=== PATIENT | male | born 1960 | race Hispanic/Latino ===

== ENCOUNTER → 2018-09-03 | Outpatient (CLI) | payer OTHER ==
[~2018-09-03] MED LIST: LIDOCAINE/PRILOCAINE CREAM 5GM TUBE TP ONE
[2018-09-03 09:21] VITALS: BP 140/85
== END | disposition home or self-care (01) ==
LOC: WHH 08:00
PROVIDERS: ATTEND Podiatrist Foot & Ankle Surgery
DX: I83.023 Varicose veins of left lower extremity with ulcer of ankle (principal); E11.622 Type 2 diabetes mellitus with other skin ulcer; L97.321 Non-pressure chronic ulcer of left ankle limited to breakdown of skin
CPT/HCPCS: 29580; 99215; A4450; A4649; A6456; J3490

== ENCOUNTER → 2018-09-10 | Outpatient (CLI) | payer OTHER ==
[2018-09-10 13:04] VITALS: BP 134/83
== END | disposition home or self-care (01) ==
LOC: WHH 08:25
PROVIDERS: ATTEND Podiatrist Foot & Ankle Surgery
DX: I83.023 Varicose veins of left lower extremity with ulcer of ankle (principal); E11.622 Type 2 diabetes mellitus with other skin ulcer; L97.321 Non-pressure chronic ulcer of left ankle limited to breakdown of skin
CPT/HCPCS: 99215; A4649; A6456

== ENCOUNTER → 2018-09-17 | Outpatient (CLI) | payer OTHER ==
[2018-09-17 13:20] VITALS: BP 134/80
== END | disposition home or self-care (01) ==
LOC: WHH 08:45
PROVIDERS: ATTEND Podiatrist Foot & Ankle Surgery
DX: I83.023 Varicose veins of left lower extremity with ulcer of ankle (principal); E11.622 Type 2 diabetes mellitus with other skin ulcer; L97.321 Non-pressure chronic ulcer of left ankle limited to breakdown of skin; I89.0 Lymphedema, not elsewhere classified
CPT/HCPCS: 29580; 99214; A4450; A6022; A6450; A6456; J3490; A6452

== ENCOUNTER → 2018-09-24 | Outpatient (CLI) | payer OTHER ==
[2018-09-24 13:18] VITALS: BP 137/72
== END | disposition home or self-care (01) ==
LOC: WHH 08:00
PROVIDERS: ATTEND Podiatrist Foot & Ankle Surgery
DX: I83.023 Varicose veins of left lower extremity with ulcer of ankle (principal); E11.622 Type 2 diabetes mellitus with other skin ulcer; L97.321 Non-pressure chronic ulcer of left ankle limited to breakdown of skin; I89.0 Lymphedema, not elsewhere classified
CPT/HCPCS: 29580; 99214; A6022; A6456; J3490

== ENCOUNTER → 2018-10-01 | Outpatient (CLI) | payer OTHER ==
[2018-10-01 13:22] VITALS: BP 136/81
== END | disposition home or self-care (01) ==
LOC: WHH 09:00
PROVIDERS: ATTEND Podiatrist Foot & Ankle Surgery
DX: I83.023 Varicose veins of left lower extremity with ulcer of ankle (principal); E11.622 Type 2 diabetes mellitus with other skin ulcer; L97.321 Non-pressure chronic ulcer of left ankle limited to breakdown of skin; I83.025 Varicose veins of left lower extremity with ulcer other part of foot; L97.521 Non-pressure chronic ulcer of other part of left foot limited to breakdown of skin; I89.0 Lymphedema, not elsewhere classified
CPT/HCPCS: 29580; 99214; A4649; A6456; J3490

== ENCOUNTER → 2018-10-08 | Outpatient (CLI) | payer OTHER ==
[2018-10-08 13:07] VITALS: BP 136/87
== END | disposition home or self-care (01) ==
LOC: WHH 08:45
PROVIDERS: ATTEND Podiatrist Foot & Ankle Surgery
DX: E11.622 Type 2 diabetes mellitus with other skin ulcer (principal); I83.023 Varicose veins of left lower extremity with ulcer of ankle; L97.321 Non-pressure chronic ulcer of left ankle limited to breakdown of skin; I89.0 Lymphedema, not elsewhere classified; I87.8 Other specified disorders of veins
CPT/HCPCS: 99214; A4649; A6452

== ENCOUNTER → 2018-10-15 | Outpatient (CLI) | payer OTHER ==
[2018-10-15 09:15] VITALS: BP 138/82
== END | disposition home or self-care (01) ==
LOC: WHH 09:00
PROVIDERS: ATTEND Podiatrist Foot & Ankle Surgery
DX: E11.622 Type 2 diabetes mellitus with other skin ulcer (principal); I83.023 Varicose veins of left lower extremity with ulcer of ankle; L97.321 Non-pressure chronic ulcer of left ankle limited to breakdown of skin; I89.0 Lymphedema, not elsewhere classified
CPT/HCPCS: 99211; A4649

== ENCOUNTER → 2018-10-22 | Outpatient (CLI) | payer OTHER ==
[2018-10-22 14:41] VITALS: BP 132/80
== END | disposition home or self-care (01) ==
LOC: WHH 09:45
PROVIDERS: ATTEND Podiatrist Foot & Ankle Surgery
DX: E11.622 Type 2 diabetes mellitus with other skin ulcer (principal); I83.023 Varicose veins of left lower extremity with ulcer of ankle; L97.321 Non-pressure chronic ulcer of left ankle limited to breakdown of skin; I87.8 Other specified disorders of veins; I89.0 Lymphedema, not elsewhere classified
CPT/HCPCS: 29580; 99214; A4649; A6456

== ENCOUNTER → 2018-10-29 | Outpatient (CLI) | payer OTHER ==
[2018-10-29 11:15] VITALS: BP 141/78
== END | disposition home or self-care (01) ==
LOC: WHH 09:00
PROVIDERS: ATTEND Podiatrist Foot & Ankle Surgery
DX: I83.023 Varicose veins of left lower extremity with ulcer of ankle (principal); E11.622 Type 2 diabetes mellitus with other skin ulcer; L97.321 Non-pressure chronic ulcer of left ankle limited to breakdown of skin; I89.0 Lymphedema, not elsewhere classified
CPT/HCPCS: 29580; A6207; A6456; G0463; J3490

== ENCOUNTER → 2018-11-05 | Outpatient (CLI) | payer OTHER ==
[2018-11-05 12:47] VITALS: BP 124/80
== END | disposition home or self-care (01) ==
LOC: WHH 08:28
PROVIDERS: ATTEND Podiatrist Foot & Ankle Surgery
DX: I83.023 Varicose veins of left lower extremity with ulcer of ankle (principal); E11.622 Type 2 diabetes mellitus with other skin ulcer; L97.321 Non-pressure chronic ulcer of left ankle limited to breakdown of skin; I89.0 Lymphedema, not elsewhere classified
CPT/HCPCS: 15271; 87070; 87077; 87186; A6196; A6207; Q4133

== ENCOUNTER → 2018-11-19 | Outpatient (CLI) | payer OTHER ==
[2018-11-19 15:33] VITALS: BP 146/84
== END | disposition home or self-care (01) ==
LOC: WHH 08:00
PROVIDERS: ATTEND Podiatrist Foot & Ankle Surgery
DX: I83.023 Varicose veins of left lower extremity with ulcer of ankle (principal); L97.321 Non-pressure chronic ulcer of left ankle limited to breakdown of skin; E11.622 Type 2 diabetes mellitus with other skin ulcer; I87.8 Other specified disorders of veins; I89.0 Lymphedema, not elsewhere classified
CPT/HCPCS: 29580; A4649; A6456; G0463

== ENCOUNTER → 2018-11-26 | Outpatient (CLI) | payer OTHER ==
[2018-11-26 09:57] VITALS: BP 127/72
== END | disposition home or self-care (01) ==
LOC: WHH 08:00
PROVIDERS: ATTEND Podiatrist Foot & Ankle Surgery
DX: I83.023 Varicose veins of left lower extremity with ulcer of ankle (principal); E11.622 Type 2 diabetes mellitus with other skin ulcer; L97.321 Non-pressure chronic ulcer of left ankle limited to breakdown of skin; I89.0 Lymphedema, not elsewhere classified
CPT/HCPCS: 15271; A6196; A6456; J3490; Q4133

== ENCOUNTER → 2018-12-10 | Outpatient (CLI) | payer OTHER ==
[2018-12-10 11:49] VITALS: BP 169/83
== END | disposition home or self-care (01) ==
LOC: WHH 08:30
PROVIDERS: ATTEND Podiatrist Foot & Ankle Surgery
DX: E11.622 Type 2 diabetes mellitus with other skin ulcer (principal); L97.321 Non-pressure chronic ulcer of left ankle limited to breakdown of skin; I83.023 Varicose veins of left lower extremity with ulcer of ankle; I89.0 Lymphedema, not elsewhere classified; I87.8 Other specified disorders of veins
CPT/HCPCS: 15271; A6207; A6456; Q4133

== ENCOUNTER → 2018-12-17 | Outpatient (CLI) | payer OTHER ==
[2018-12-17 13:13] VITALS: BP 158/91
== END | disposition home or self-care (01) ==
LOC: WHH 08:45
PROVIDERS: ATTEND Podiatrist Foot & Ankle Surgery
DX: E11.622 Type 2 diabetes mellitus with other skin ulcer (principal); L97.321 Non-pressure chronic ulcer of left ankle limited to breakdown of skin; I83.023 Varicose veins of left lower extremity with ulcer of ankle; I89.0 Lymphedema, not elsewhere classified; I87.8 Other specified disorders of veins
CPT/HCPCS: 15271; A4649; A6207; A6456; Q4133

== ENCOUNTER → 2018-12-24 | Outpatient (CLI) | payer OTHER ==
[2018-12-24 13:54] VITALS: BP 145/75
== END | disposition home or self-care (01) ==
LOC: WHH 08:45
PROVIDERS: ATTEND Podiatrist Foot & Ankle Surgery
DX: E11.622 Type 2 diabetes mellitus with other skin ulcer (principal); I83.023 Varicose veins of left lower extremity with ulcer of ankle; L97.321 Non-pressure chronic ulcer of left ankle limited to breakdown of skin; I89.0 Lymphedema, not elsewhere classified; I87.8 Other specified disorders of veins
CPT/HCPCS: 15271; A4649; A6197; A6456; Q4133

== ENCOUNTER → 2018-12-31 | Outpatient (CLI) | payer OTHER ==
[2018-12-31 10:16] VITALS: BP 145/80
== END | disposition home or self-care (01) ==
LOC: WHH 09:00
PROVIDERS: ATTEND Podiatrist Foot & Ankle Surgery
DX: E11.622 Type 2 diabetes mellitus with other skin ulcer (principal); I83.023 Varicose veins of left lower extremity with ulcer of ankle; L97.321 Non-pressure chronic ulcer of left ankle limited to breakdown of skin; I87.8 Other specified disorders of veins; I89.0 Lymphedema, not elsewhere classified
CPT/HCPCS: 15271; A6207; A6456; Q4133

== ENCOUNTER → 2019-01-07 | Outpatient (CLI) | payer OTHER ==
[2019-01-07 09:37] VITALS: BP 135/75
== END | disposition home or self-care (01) ==
LOC: WHH 08:00
PROVIDERS: ATTEND Podiatrist Foot & Ankle Surgery
DX: E11.622 Type 2 diabetes mellitus with other skin ulcer (principal); I83.023 Varicose veins of left lower extremity with ulcer of ankle; L97.321 Non-pressure chronic ulcer of left ankle limited to breakdown of skin; I87.8 Other specified disorders of veins; I89.0 Lymphedema, not elsewhere classified
CPT/HCPCS: 15271; A6207; A6456; J3490; Q4133

== ENCOUNTER → 2019-01-14 | Outpatient (CLI) | payer OTHER ==
[2019-01-14 13:56] VITALS: BP 123/69
--- NOTE | 2019-01-14 14:01 | NUR ---
Patient reports that he did not take Augmentin prescribed on 01/07/19. Patient states he completely forgot about prescription and never filled it. Dr. Kwok was informed and did not want pt to take abx at this time. Addendum: 01/14/19 at 1404 by DIONE CARRASCO RN/BONITA Amended: Links added.
== END | disposition home or self-care (01) ==
LOC: WHH 08:30
PROVIDERS: ATTEND Podiatrist Foot & Ankle Surgery
DX: E11.622 Type 2 diabetes mellitus with other skin ulcer (principal); I83.013 Varicose veins of right lower extremity with ulcer of ankle; L97.321 Non-pressure chronic ulcer of left ankle limited to breakdown of skin; I89.0 Lymphedema, not elsewhere classified; I87.8 Other specified disorders of veins
CPT/HCPCS: 15271; A6207; A6456; Q4133; 29580

== ENCOUNTER → 2019-01-21 | Outpatient (CLI) | payer OTHER ==
[2019-01-21 14:26] VITALS: BP 142/62
== END | disposition home or self-care (01) ==
LOC: WHH 09:15
PROVIDERS: ATTEND Podiatrist Foot & Ankle Surgery
DX: E11.622 Type 2 diabetes mellitus with other skin ulcer (principal); I83.023 Varicose veins of left lower extremity with ulcer of ankle; L97.321 Non-pressure chronic ulcer of left ankle limited to breakdown of skin; I87.8 Other specified disorders of veins; I89.0 Lymphedema, not elsewhere classified
CPT/HCPCS: 15271; A6207 ×2; A6456; Q4132

== ENCOUNTER → 2019-01-28 | Outpatient (CLI) | payer OTHER ==
[2019-01-28 15:32] VITALS: BP 127/71
== END | disposition home or self-care (01) ==
LOC: WHH 08:30
PROVIDERS: ATTEND Podiatrist Foot & Ankle Surgery
DX: E11.622 Type 2 diabetes mellitus with other skin ulcer (principal); I83.023 Varicose veins of left lower extremity with ulcer of ankle; L97.321 Non-pressure chronic ulcer of left ankle limited to breakdown of skin; I89.0 Lymphedema, not elsewhere classified; I87.8 Other specified disorders of veins
CPT/HCPCS: 15271; A6207; A6456; Q4133; 29580

== ENCOUNTER → 2019-02-04 | Outpatient (CLI) | payer OTHER ==
[2019-02-04 14:02] VITALS: BP 136/75
== END | disposition home or self-care (01) ==
LOC: WHH 08:30
PROVIDERS: ATTEND Podiatrist Foot & Ankle Surgery
DX: E11.622 Type 2 diabetes mellitus with other skin ulcer (principal); I83.023 Varicose veins of left lower extremity with ulcer of ankle; L97.321 Non-pressure chronic ulcer of left ankle limited to breakdown of skin; I89.0 Lymphedema, not elsewhere classified; I87.8 Other specified disorders of veins
CPT/HCPCS: 29580; A6207; A6456; G0463

== ENCOUNTER → 2019-02-11 | Outpatient (CLI) | payer OTHER ==
[~2019-02-11] MED LIST changes: +LIDOCAINE HCL 2% JELLY 5 ML ONE; -LIDOCAINE/PRILOCAINE CREAM 5GM TUBE TP ONE
[2019-02-11 13:36] VITALS: BP 124/86
== END | disposition home or self-care (01) ==
LOC: WHH 08:30
PROVIDERS: ATTEND Podiatrist Foot & Ankle Surgery
DX: E11.622 Type 2 diabetes mellitus with other skin ulcer (principal); I83.023 Varicose veins of left lower extremity with ulcer of ankle; L97.321 Non-pressure chronic ulcer of left ankle limited to breakdown of skin; I89.0 Lymphedema, not elsewhere classified; I87.8 Other specified disorders of veins
CPT/HCPCS: 99214; A6207

== ENCOUNTER → 2019-02-18 | Outpatient (CLI) | payer OTHER ==
[2019-02-18 14:19] VITALS: BP 134/81
== END | disposition home or self-care (01) ==
LOC: WHH 08:45
PROVIDERS: ATTEND Podiatrist Foot & Ankle Surgery
DX: E11.622 Type 2 diabetes mellitus with other skin ulcer (principal); L97.321 Non-pressure chronic ulcer of left ankle limited to breakdown of skin; I83.023 Varicose veins of left lower extremity with ulcer of ankle; I89.0 Lymphedema, not elsewhere classified; I87.8 Other specified disorders of veins
CPT/HCPCS: 99214; A6207

== ENCOUNTER → 2019-02-25 | Outpatient (CLI) | payer OTHER ==
[~2019-02-25] MED LIST changes: -LIDOCAINE HCL 2% JELLY 5 ML ONE; +LIDOCAINE/PRILOCAINE CREAM 5GM TUBE TP ONE
[2019-02-25 11:54] VITALS: BP 129/74
== END | disposition home or self-care (01) ==
LOC: WHH 08:20
PROVIDERS: ATTEND Podiatrist Foot & Ankle Surgery
DX: E11.622 Type 2 diabetes mellitus with other skin ulcer (principal); I83.023 Varicose veins of left lower extremity with ulcer of ankle; L97.322 Non-pressure chronic ulcer of left ankle with fat layer exposed; I87.8 Other specified disorders of veins; I89.0 Lymphedema, not elsewhere classified
CPT/HCPCS: 11042; A6207; J3490

== ENCOUNTER → 2019-03-04 | Outpatient (CLI) | payer OTHER ==
[2019-03-04 15:04] VITALS: BP 128/72
== END | disposition home or self-care (01) ==
LOC: WHH 08:45
PROVIDERS: ATTEND Podiatrist Foot & Ankle Surgery
DX: E11.622 Type 2 diabetes mellitus with other skin ulcer (principal); I83.023 Varicose veins of left lower extremity with ulcer of ankle; L97.322 Non-pressure chronic ulcer of left ankle with fat layer exposed; I87.8 Other specified disorders of veins; I89.0 Lymphedema, not elsewhere classified
CPT/HCPCS: 11042; A6022; A6452

== ENCOUNTER → 2019-03-11 | Outpatient (CLI) | payer OTHER ==
[2019-03-11 14:41] VITALS: BP 126/74
== END | disposition home or self-care (01) ==
LOC: WHH 08:10
PROVIDERS: ATTEND Podiatrist Foot & Ankle Surgery
DX: E11.622 Type 2 diabetes mellitus with other skin ulcer (principal); I83.023 Varicose veins of left lower extremity with ulcer of ankle; L97.322 Non-pressure chronic ulcer of left ankle with fat layer exposed; I87.8 Other specified disorders of veins; I89.0 Lymphedema, not elsewhere classified
CPT/HCPCS: 99214; A4649

== ENCOUNTER → 2019-03-25 | Outpatient (CLI) | payer OTHER ==
[2019-03-25 13:55] VITALS: BP 125/69
== END | disposition home or self-care (01) ==
LOC: WHH 08:00
PROVIDERS: ATTEND Podiatrist Foot & Ankle Surgery
DX: E11.622 Type 2 diabetes mellitus with other skin ulcer (principal); I83.023 Varicose veins of left lower extremity with ulcer of ankle; L97.322 Non-pressure chronic ulcer of left ankle with fat layer exposed; I87.8 Other specified disorders of veins; I89.0 Lymphedema, not elsewhere classified
CPT/HCPCS: 11042; A6207; A6456; J3490

== ENCOUNTER → 2019-04-01 | Outpatient (CLI) | payer OTHER ==
[2019-04-01 13:16] VITALS: BP 133/74
== END | disposition home or self-care (01) ==
LOC: WHH 08:00
PROVIDERS: ATTEND Podiatrist Foot & Ankle Surgery
DX: E11.622 Type 2 diabetes mellitus with other skin ulcer (principal); I83.023 Varicose veins of left lower extremity with ulcer of ankle; L97.321 Non-pressure chronic ulcer of left ankle limited to breakdown of skin; I89.0 Lymphedema, not elsewhere classified; I87.8 Other specified disorders of veins
CPT/HCPCS: 29580; 99214; A6022; A6456; J3490

== ENCOUNTER → 2019-04-15 | Outpatient (CLI) | payer OTHER ==
[2019-04-15 12:28] VITALS: BP 149/83
== END | disposition home or self-care (01) ==
LOC: WHH 08:00
PROVIDERS: ATTEND Podiatrist Foot & Ankle Surgery
DX: E11.622 Type 2 diabetes mellitus with other skin ulcer (principal); I83.023 Varicose veins of left lower extremity with ulcer of ankle; L97.321 Non-pressure chronic ulcer of left ankle limited to breakdown of skin; I89.0 Lymphedema, not elsewhere classified; I87.8 Other specified disorders of veins
CPT/HCPCS: 29580; 99214; A6022; A6456

== ENCOUNTER → 2019-04-22 | Outpatient (CLI) | payer OTHER ==
[2019-04-22 12:24] VITALS: BP 143/82
== END | disposition home or self-care (01) ==
LOC: WHH 08:00
PROVIDERS: ATTEND Podiatrist Foot & Ankle Surgery
DX: I83.023 Varicose veins of left lower extremity with ulcer of ankle (principal); E11.622 Type 2 diabetes mellitus with other skin ulcer; L97.321 Non-pressure chronic ulcer of left ankle limited to breakdown of skin; I89.0 Lymphedema, not elsewhere classified; I87.8 Other specified disorders of veins
CPT/HCPCS: 29580; 87070; 87077 ×2; 87186 ×2; 99214; A6456

== ENCOUNTER → 2019-04-29 | Outpatient (CLI) | payer OTHER ==
[2019-04-29 10:01] VITALS: BP 131/79
== END | disposition home or self-care (01) ==
LOC: WHH 08:00
PROVIDERS: ATTEND Podiatrist Foot & Ankle Surgery
DX: I83.023 Varicose veins of left lower extremity with ulcer of ankle (principal); E11.622 Type 2 diabetes mellitus with other skin ulcer; L97.321 Non-pressure chronic ulcer of left ankle limited to breakdown of skin; I89.0 Lymphedema, not elsewhere classified; I87.8 Other specified disorders of veins
CPT/HCPCS: 29580; 99214; A6022; A6456; J3490

== ENCOUNTER → 2019-05-06 | Outpatient (CLI) | payer OTHER ==
[2019-05-06 12:20] VITALS: BP 123/73
== END | disposition home or self-care (01) ==
LOC: WHH 08:30
PROVIDERS: ATTEND Podiatrist Foot & Ankle Surgery
DX: I83.023 Varicose veins of left lower extremity with ulcer of ankle (principal); E11.622 Type 2 diabetes mellitus with other skin ulcer; L97.321 Non-pressure chronic ulcer of left ankle limited to breakdown of skin; I89.0 Lymphedema, not elsewhere classified; I87.8 Other specified disorders of veins
CPT/HCPCS: 29580; 99214; A6022; A6456; J3490

== ENCOUNTER → 2019-05-20 | Outpatient (CLI) | payer OTHER ==
[2019-05-20 14:04] VITALS: BP 124/70
== END | disposition home or self-care (01) ==
LOC: WHH 08:00
PROVIDERS: ATTEND Podiatrist Foot & Ankle Surgery
DX: I83.023 Varicose veins of left lower extremity with ulcer of ankle (principal); E11.622 Type 2 diabetes mellitus with other skin ulcer; L97.321 Non-pressure chronic ulcer of left ankle limited to breakdown of skin; I89.0 Lymphedema, not elsewhere classified; I87.8 Other specified disorders of veins
CPT/HCPCS: 29580; 87070; 87077 ×2; 87186 ×2; A6021; A6456; G0463; J3490

== ENCOUNTER → 2019-05-27 | Outpatient (CLI) | payer OTHER ==
[2019-05-27 13:26] VITALS: BP 141/76
== END | disposition home or self-care (01) ==
LOC: WHH 09:10
PROVIDERS: ATTEND Podiatrist Foot & Ankle Surgery
DX: I83.023 Varicose veins of left lower extremity with ulcer of ankle (principal); E11.622 Type 2 diabetes mellitus with other skin ulcer; L97.321 Non-pressure chronic ulcer of left ankle limited to breakdown of skin; I89.0 Lymphedema, not elsewhere classified; I87.8 Other specified disorders of veins
CPT/HCPCS: 29580; A6021; A6456; G0463; J3490

== ENCOUNTER → 2019-06-03 | Outpatient (CLI) | payer OTHER ==
[2019-06-03 12:02] VITALS: BP 135/77
== END | disposition home or self-care (01) ==
LOC: WHH 08:10
PROVIDERS: ATTEND Podiatrist Foot & Ankle Surgery
DX: I83.023 Varicose veins of left lower extremity with ulcer of ankle (principal); E11.622 Type 2 diabetes mellitus with other skin ulcer; L97.321 Non-pressure chronic ulcer of left ankle limited to breakdown of skin; I89.0 Lymphedema, not elsewhere classified; I87.8 Other specified disorders of veins
CPT/HCPCS: 29580; A6021; A6456; G0463; J3490

== ENCOUNTER → 2019-06-17 | Outpatient (CLI) | payer OTHER ==
[2019-06-17 14:08] VITALS: BP 136/76
== END | disposition home or self-care (01) ==
LOC: WHH 08:25
PROVIDERS: ATTEND Podiatrist Foot & Ankle Surgery
DX: E11.622 Type 2 diabetes mellitus with other skin ulcer (principal); I83.023 Varicose veins of left lower extremity with ulcer of ankle; L97.322 Non-pressure chronic ulcer of left ankle with fat layer exposed; I89.0 Lymphedema, not elsewhere classified; I87.8 Other specified disorders of veins
CPT/HCPCS: 11042; A6021; A6456; J3490

== ENCOUNTER → 2019-06-24 | Outpatient (CLI) | payer OTHER ==
[2019-06-24 13:16] VITALS: BP 136/87
== END | disposition home or self-care (01) ==
LOC: WHH 08:20
PROVIDERS: ATTEND Podiatrist Foot & Ankle Surgery
DX: E11.622 Type 2 diabetes mellitus with other skin ulcer (principal); I83.023 Varicose veins of left lower extremity with ulcer of ankle; L97.321 Non-pressure chronic ulcer of left ankle limited to breakdown of skin; I87.8 Other specified disorders of veins; I89.0 Lymphedema, not elsewhere classified
CPT/HCPCS: 29580; A6021; A6456; G0463; J3490

== ENCOUNTER → 2019-07-15 | Outpatient (CLI) | payer OTHER ==
[~2019-07-15] MED LIST changes: +BACITRACIN 28.4 GM OINT TP ONE; -LIDOCAINE/PRILOCAINE CREAM 5GM TUBE TP ONE
[2019-07-15 12:15] VITALS: BP 131/78
== END | disposition home or self-care (01) ==
LOC: WHH 08:30
PROVIDERS: ATTEND Podiatrist Foot & Ankle Surgery
DX: E11.622 Type 2 diabetes mellitus with other skin ulcer (principal); I83.023 Varicose veins of left lower extremity with ulcer of ankle; L97.321 Non-pressure chronic ulcer of left ankle limited to breakdown of skin; I87.8 Other specified disorders of veins; I89.0 Lymphedema, not elsewhere classified
CPT/HCPCS: 29580; A6021; A6456; G0463

== ENCOUNTER → 2019-07-22 | Outpatient (CLI) | payer OTHER ==
[~2019-07-22] MED LIST changes: -BACITRACIN 28.4 GM OINT TP ONE; +LIDOCAINE/PRILOCAINE CREAM 5GM TUBE TP ONE
[2019-07-22 11:32] VITALS: BP 164/84
== END | disposition home or self-care (01) ==
LOC: WHH 09:00
PROVIDERS: ATTEND Podiatrist Foot & Ankle Surgery
DX: E11.622 Type 2 diabetes mellitus with other skin ulcer (principal); L97.322 Non-pressure chronic ulcer of left ankle with fat layer exposed; I83.023 Varicose veins of left lower extremity with ulcer of ankle; I89.0 Lymphedema, not elsewhere classified; I87.8 Other specified disorders of veins
CPT/HCPCS: 11042; A6021; A6456; J3490

== ENCOUNTER → 2019-08-05 | Outpatient (CLI) | payer OTHER ==
[2019-08-05 13:14] VITALS: BP 150/71
== END | disposition home or self-care (01) ==
LOC: WHH 08:00
PROVIDERS: ATTEND Podiatrist Foot & Ankle Surgery
DX: E11.622 Type 2 diabetes mellitus with other skin ulcer (principal); L97.322 Non-pressure chronic ulcer of left ankle with fat layer exposed; I83.023 Varicose veins of left lower extremity with ulcer of ankle; I89.0 Lymphedema, not elsewhere classified; I87.8 Other specified disorders of veins
CPT/HCPCS: 29580; A6021; A6456; G0463; J3490

== ENCOUNTER → 2019-08-26 | Outpatient (CLI) | payer OTHER ==
[2019-08-26 14:41] VITALS: BP 165/86
== END | disposition home or self-care (01) ==
LOC: WHH 08:00
PROVIDERS: ATTEND Podiatrist Foot & Ankle Surgery
DX: E11.622 Type 2 diabetes mellitus with other skin ulcer (principal); L97.322 Non-pressure chronic ulcer of left ankle with fat layer exposed; I83.023 Varicose veins of left lower extremity with ulcer of ankle; I89.0 Lymphedema, not elsewhere classified; I87.8 Other specified disorders of veins
CPT/HCPCS: 29580; A6021; A6456; G0463

== ENCOUNTER → 2019-09-02 | Outpatient (CLI) | payer OTHER ==
[2019-09-02 14:15] VITALS: BP 147/68
== END | disposition home or self-care (01) ==
LOC: WHH 08:00
PROVIDERS: ATTEND Podiatrist Foot & Ankle Surgery
DX: E11.622 Type 2 diabetes mellitus with other skin ulcer (principal); L97.322 Non-pressure chronic ulcer of left ankle with fat layer exposed; I83.023 Varicose veins of left lower extremity with ulcer of ankle; I89.0 Lymphedema, not elsewhere classified; I87.8 Other specified disorders of veins
CPT/HCPCS: 11042; A6021; A6456; J3490

== ENCOUNTER → 2019-09-09 | Outpatient (CLI) | payer OTHER ==
[2019-09-09 12:27] VITALS: BP 138/71
== END | disposition home or self-care (01) ==
LOC: WHH 08:00
PROVIDERS: ATTEND Podiatrist Foot & Ankle Surgery
DX: E11.622 Type 2 diabetes mellitus with other skin ulcer (principal); L97.321 Non-pressure chronic ulcer of left ankle limited to breakdown of skin; I83.023 Varicose veins of left lower extremity with ulcer of ankle; I89.0 Lymphedema, not elsewhere classified; I87.8 Other specified disorders of veins
CPT/HCPCS: A6021; A6452; G0463

== ENCOUNTER → 2019-09-23 | Outpatient (CLI) | payer OTHER ==
[2019-09-23 12:55] VITALS: BP 135/74
== END | disposition home or self-care (01) ==
LOC: WHH 08:20
PROVIDERS: ATTEND Podiatrist Foot & Ankle Surgery
DX: E11.622 Type 2 diabetes mellitus with other skin ulcer (principal); I83.023 Varicose veins of left lower extremity with ulcer of ankle; L97.321 Non-pressure chronic ulcer of left ankle limited to breakdown of skin; E11.51 Type 2 diabetes mellitus with diabetic peripheral angiopathy without gangrene; I89.0 Lymphedema, not elsewhere classified; I87.8 Other specified disorders of veins
CPT/HCPCS: A6207; G0463; J3490

== ENCOUNTER → 2019-10-28 | Outpatient (CLI) | payer OTHER ==
[2019-10-28 14:26] VITALS: BP 140/74
== END | disposition home or self-care (01) ==
LOC: WHH 08:45
PROVIDERS: ATTEND Podiatrist Foot & Ankle Surgery
DX: E11.622 Type 2 diabetes mellitus with other skin ulcer (principal); I83.023 Varicose veins of left lower extremity with ulcer of ankle; L97.321 Non-pressure chronic ulcer of left ankle limited to breakdown of skin; E11.51 Type 2 diabetes mellitus with diabetic peripheral angiopathy without gangrene; I87.8 Other specified disorders of veins; I89.0 Lymphedema, not elsewhere classified
CPT/HCPCS: A6207; G0463

== ENCOUNTER 2019-11-11 08:30 | Outpatient (CLI) | payer OTHER ==
[2019-11-11 11:33] VITALS: BP 154/72
== END 2019-11-11 11:44 | disposition home or self-care (01) ==
LOC: WHH 08:30
PROVIDERS: ATTEND Podiatrist Foot & Ankle Surgery
DX: E11.622 Type 2 diabetes mellitus with other skin ulcer (principal); I83.023 Varicose veins of left lower extremity with ulcer of ankle; L97.328 Non-pressure chronic ulcer of left ankle with other specified severity; E11.51 Type 2 diabetes mellitus with diabetic peripheral angiopathy without gangrene; I89.0 Lymphedema, not elsewhere classified; I87.8 Other specified disorders of veins
CPT/HCPCS: G0463

== ENCOUNTER → 2020-07-13 | Outpatient (CLI) | payer OTHER | END | disposition home or self-care (01) | LOC: WHH 08:25 | PROVIDERS: ATTEND Podiatrist Foot & Ankle Surgery | DX: E11.622 Type 2 diabetes mellitus with other skin ulcer (principal); L97.322 Non-pressure chronic ulcer of left ankle with fat layer exposed; I89.0 Lymphedema, not elsewhere classified; I87.8 Other specified disorders of veins; E11.51 Type 2 diabetes mellitus with diabetic peripheral angiopathy without gangrene; I63.59 Cerebral infarction due to unspecified occlusion or stenosis of other cerebral artery; Z86.73 Personal history of transient ischemic attack (TIA), and cerebral infarction without residual deficits | CPT/HCPCS: 29580; A6207 ×2; A6456; G0463 ==

== ENCOUNTER → 2020-07-20 | Outpatient (CLI) | payer OTHER ==
[~2020-07-20] MED LIST changes: +LIDOCAINE HCL 4% LTA SOL 4 ML VIAL ONE; -LIDOCAINE/PRILOCAINE CREAM 5GM TUBE TP ONE
== END | disposition home or self-care (01) ==
LOC: WHH 08:30
PROVIDERS: ATTEND Podiatrist Foot & Ankle Surgery
DX: E11.622 Type 2 diabetes mellitus with other skin ulcer (principal); L97.322 Non-pressure chronic ulcer of left ankle with fat layer exposed; I89.0 Lymphedema, not elsewhere classified; I87.8 Other specified disorders of veins; E11.51 Type 2 diabetes mellitus with diabetic peripheral angiopathy without gangrene; I63.59 Cerebral infarction due to unspecified occlusion or stenosis of other cerebral artery; Z86.73 Personal history of transient ischemic attack (TIA), and cerebral infarction without residual deficits
CPT/HCPCS: 11042; 87070; 87077; 87186; A6207; A6456

== ENCOUNTER → 2020-07-27 | Outpatient (CLI) | payer OTHER | END | disposition home or self-care (01) | LOC: WHH 08:15 | PROVIDERS: ATTEND Podiatrist Foot & Ankle Surgery | DX: E11.622 Type 2 diabetes mellitus with other skin ulcer (principal); L97.322 Non-pressure chronic ulcer of left ankle with fat layer exposed; I89.0 Lymphedema, not elsewhere classified; I87.8 Other specified disorders of veins; E11.51 Type 2 diabetes mellitus with diabetic peripheral angiopathy without gangrene; I63.59 Cerebral infarction due to unspecified occlusion or stenosis of other cerebral artery; Z86.73 Personal history of transient ischemic attack (TIA), and cerebral infarction without residual deficits | CPT/HCPCS: 29580; A6207; A6456; G0463 ==

== ENCOUNTER → 2020-08-03 | Outpatient (CLI) | payer OTHER | END | disposition home or self-care (01) | LOC: WHH 08:17 | PROVIDERS: ATTEND Podiatrist Foot & Ankle Surgery | DX: E11.622 Type 2 diabetes mellitus with other skin ulcer (principal); L97.322 Non-pressure chronic ulcer of left ankle with fat layer exposed; I89.0 Lymphedema, not elsewhere classified; I87.8 Other specified disorders of veins; E11.51 Type 2 diabetes mellitus with diabetic peripheral angiopathy without gangrene; I63.59 Cerebral infarction due to unspecified occlusion or stenosis of other cerebral artery; Z86.73 Personal history of transient ischemic attack (TIA), and cerebral infarction without residual deficits | CPT/HCPCS: 29580; A6207; A6456; G0463 ==

== ENCOUNTER → 2020-08-10 | Outpatient (CLI) | payer OTHER ==
[~2020-08-10] MED LIST changes: +LIDOCAINE HCL 2% JELLY 5 ML ONE; -LIDOCAINE HCL 4% LTA SOL 4 ML VIAL ONE
== END | disposition home or self-care (01) ==
LOC: WHH 08:30
PROVIDERS: ATTEND Podiatrist Foot & Ankle Surgery
DX: E11.622 Type 2 diabetes mellitus with other skin ulcer (principal); L97.322 Non-pressure chronic ulcer of left ankle with fat layer exposed; I89.0 Lymphedema, not elsewhere classified; I87.8 Other specified disorders of veins; E11.51 Type 2 diabetes mellitus with diabetic peripheral angiopathy without gangrene; I63.59 Cerebral infarction due to unspecified occlusion or stenosis of other cerebral artery; Z86.73 Personal history of transient ischemic attack (TIA), and cerebral infarction without residual deficits
CPT/HCPCS: 29580; A6207; A6456; G0463

== ENCOUNTER → 2020-08-17 | Outpatient (CLI) | payer OTHER | END | disposition home or self-care (01) | LOC: WHH 08:00 | PROVIDERS: ATTEND Podiatrist Foot & Ankle Surgery | DX: E11.622 Type 2 diabetes mellitus with other skin ulcer (principal); L97.322 Non-pressure chronic ulcer of left ankle with fat layer exposed; I89.0 Lymphedema, not elsewhere classified; I87.8 Other specified disorders of veins; E11.51 Type 2 diabetes mellitus with diabetic peripheral angiopathy without gangrene; I63.59 Cerebral infarction due to unspecified occlusion or stenosis of other cerebral artery; Z86.73 Personal history of transient ischemic attack (TIA), and cerebral infarction without residual deficits | CPT/HCPCS: 11042; A6207; A6456 ==

== ENCOUNTER → 2020-08-24 | Outpatient (CLI) | payer OTHER | END | disposition home or self-care (01) | LOC: WHH 08:00 | PROVIDERS: ATTEND Podiatrist Foot & Ankle Surgery | DX: E11.622 Type 2 diabetes mellitus with other skin ulcer (principal); L97.322 Non-pressure chronic ulcer of left ankle with fat layer exposed; I89.0 Lymphedema, not elsewhere classified; I87.8 Other specified disorders of veins; E11.51 Type 2 diabetes mellitus with diabetic peripheral angiopathy without gangrene; I63.59 Cerebral infarction due to unspecified occlusion or stenosis of other cerebral artery; Z86.73 Personal history of transient ischemic attack (TIA), and cerebral infarction without residual deficits | CPT/HCPCS: 29580; A6207; A6456; G0463 ==

== ENCOUNTER → 2020-08-31 | Outpatient (CLI) | payer OTHER | END | disposition home or self-care (01) | LOC: WHH 08:45 | PROVIDERS: ATTEND Podiatrist Foot & Ankle Surgery | DX: E11.622 Type 2 diabetes mellitus with other skin ulcer (principal); L97.322 Non-pressure chronic ulcer of left ankle with fat layer exposed; I89.0 Lymphedema, not elsewhere classified; I87.8 Other specified disorders of veins; E11.51 Type 2 diabetes mellitus with diabetic peripheral angiopathy without gangrene; I63.59 Cerebral infarction due to unspecified occlusion or stenosis of other cerebral artery; Z86.73 Personal history of transient ischemic attack (TIA), and cerebral infarction without residual deficits | CPT/HCPCS: 29580; A6207; A6456; G0463 ==

== ENCOUNTER → 2020-09-14 | Outpatient (CLI) | payer OTHER | END | disposition home or self-care (01) | LOC: WHH 08:00 | PROVIDERS: ATTEND Podiatrist Foot & Ankle Surgery | DX: E11.622 Type 2 diabetes mellitus with other skin ulcer (principal); L97.322 Non-pressure chronic ulcer of left ankle with fat layer exposed; I89.0 Lymphedema, not elsewhere classified; I87.8 Other specified disorders of veins; E11.51 Type 2 diabetes mellitus with diabetic peripheral angiopathy without gangrene; I63.59 Cerebral infarction due to unspecified occlusion or stenosis of other cerebral artery; Z86.73 Personal history of transient ischemic attack (TIA), and cerebral infarction without residual deficits | CPT/HCPCS: 29580; A6207; A6456; G0463 ==

== ENCOUNTER → 2020-09-21 | Outpatient (CLI) | payer OTHER | END | disposition home or self-care (01) | LOC: WHH 08:15 | PROVIDERS: ATTEND Podiatrist Foot & Ankle Surgery | DX: E11.622 Type 2 diabetes mellitus with other skin ulcer (principal); L97.322 Non-pressure chronic ulcer of left ankle with fat layer exposed; I89.0 Lymphedema, not elsewhere classified; I87.8 Other specified disorders of veins; E11.51 Type 2 diabetes mellitus with diabetic peripheral angiopathy without gangrene; I63.59 Cerebral infarction due to unspecified occlusion or stenosis of other cerebral artery; Z86.73 Personal history of transient ischemic attack (TIA), and cerebral infarction without residual deficits | CPT/HCPCS: 29580; A6207; A6456; G0463 ==

== ENCOUNTER → 2020-09-28 | Outpatient (CLI) | payer OTHER | END | disposition home or self-care (01) | LOC: WHH 08:30 | PROVIDERS: ATTEND Podiatrist Foot & Ankle Surgery | DX: E11.622 Type 2 diabetes mellitus with other skin ulcer (principal); L97.322 Non-pressure chronic ulcer of left ankle with fat layer exposed; E11.51 Type 2 diabetes mellitus with diabetic peripheral angiopathy without gangrene; I89.0 Lymphedema, not elsewhere classified; I87.8 Other specified disorders of veins; I63.59 Cerebral infarction due to unspecified occlusion or stenosis of other cerebral artery; Z86.73 Personal history of transient ischemic attack (TIA), and cerebral infarction without residual deficits | CPT/HCPCS: 29580; A6207; A6456; G0463 ==

== ENCOUNTER → 2020-10-12 | Outpatient (CLI) | payer OTHER | END | disposition home or self-care (01) | LOC: WHH 08:00 | PROVIDERS: ATTEND Podiatrist Foot & Ankle Surgery | DX: E11.622 Type 2 diabetes mellitus with other skin ulcer (principal); L97.322 Non-pressure chronic ulcer of left ankle with fat layer exposed; E11.51 Type 2 diabetes mellitus with diabetic peripheral angiopathy without gangrene; I89.0 Lymphedema, not elsewhere classified; I87.8 Other specified disorders of veins; I63.59 Cerebral infarction due to unspecified occlusion or stenosis of other cerebral artery; Z86.73 Personal history of transient ischemic attack (TIA), and cerebral infarction without residual deficits | CPT/HCPCS: 29580; A6207; A6456; G0463 ==

== ENCOUNTER → 2020-10-19 | Outpatient (CLI) | payer OTHER | END | disposition home or self-care (01) | LOC: WHH 08:30 | PROVIDERS: ATTEND Podiatrist Foot & Ankle Surgery | DX: E11.622 Type 2 diabetes mellitus with other skin ulcer (principal); L97.322 Non-pressure chronic ulcer of left ankle with fat layer exposed; E11.51 Type 2 diabetes mellitus with diabetic peripheral angiopathy without gangrene; I89.0 Lymphedema, not elsewhere classified; I87.8 Other specified disorders of veins; I63.59 Cerebral infarction due to unspecified occlusion or stenosis of other cerebral artery; Z86.73 Personal history of transient ischemic attack (TIA), and cerebral infarction without residual deficits | CPT/HCPCS: 29580; A6207; A6456; G0463 ==

== ENCOUNTER → 2020-11-02 | Outpatient (CLI) | payer OTHER | END | disposition home or self-care (01) | LOC: WHH 08:30 | PROVIDERS: ATTEND Podiatrist Foot & Ankle Surgery | DX: E11.622 Type 2 diabetes mellitus with other skin ulcer (principal); L97.322 Non-pressure chronic ulcer of left ankle with fat layer exposed; E11.51 Type 2 diabetes mellitus with diabetic peripheral angiopathy without gangrene; I89.0 Lymphedema, not elsewhere classified; I87.8 Other specified disorders of veins; I63.59 Cerebral infarction due to unspecified occlusion or stenosis of other cerebral artery; Z86.73 Personal history of transient ischemic attack (TIA), and cerebral infarction without residual deficits | CPT/HCPCS: 29580; A6207; A6456; G0463 ==

== ENCOUNTER → 2020-11-09 | Outpatient (CLI) | payer OTHER | END | disposition home or self-care (01) | LOC: WHH 08:10 | PROVIDERS: ATTEND Podiatrist Foot & Ankle Surgery | DX: E11.622 Type 2 diabetes mellitus with other skin ulcer (principal); L97.322 Non-pressure chronic ulcer of left ankle with fat layer exposed; E11.51 Type 2 diabetes mellitus with diabetic peripheral angiopathy without gangrene; I89.0 Lymphedema, not elsewhere classified; I87.8 Other specified disorders of veins; I63.59 Cerebral infarction due to unspecified occlusion or stenosis of other cerebral artery; Z86.73 Personal history of transient ischemic attack (TIA), and cerebral infarction without residual deficits | CPT/HCPCS: 87070; 87077; 87186; 97597; A6207; A6456 ==

== ENCOUNTER → 2020-11-16 | Outpatient (CLI) | payer OTHER | END | disposition home or self-care (01) | LOC: WHH 08:30 | PROVIDERS: ATTEND Podiatrist Foot & Ankle Surgery | DX: E11.622 Type 2 diabetes mellitus with other skin ulcer (principal); L97.322 Non-pressure chronic ulcer of left ankle with fat layer exposed; E11.51 Type 2 diabetes mellitus with diabetic peripheral angiopathy without gangrene; I89.0 Lymphedema, not elsewhere classified; I87.8 Other specified disorders of veins; I63.59 Cerebral infarction due to unspecified occlusion or stenosis of other cerebral artery; Z86.73 Personal history of transient ischemic attack (TIA), and cerebral infarction without residual deficits | CPT/HCPCS: 29580; A6207; A6456; G0463 ==

== ENCOUNTER → 2020-11-30 | Outpatient (CLI) | payer OTHER | END | disposition home or self-care (01) | LOC: WHH 09:00 | PROVIDERS: ATTEND Podiatrist Foot & Ankle Surgery | DX: E11.622 Type 2 diabetes mellitus with other skin ulcer (principal); L97.322 Non-pressure chronic ulcer of left ankle with fat layer exposed; E11.51 Type 2 diabetes mellitus with diabetic peripheral angiopathy without gangrene; I89.0 Lymphedema, not elsewhere classified; I87.8 Other specified disorders of veins; I63.59 Cerebral infarction due to unspecified occlusion or stenosis of other cerebral artery; Z86.73 Personal history of transient ischemic attack (TIA), and cerebral infarction without residual deficits | CPT/HCPCS: G0463 ==